=== PATIENT | female | born 1945 | race Hispanic/Latino ===

== ENCOUNTER → 2019-06-16 | Day surgery (SDC) | payer MEDICARE ==
[2019-06-14 11:38] LABS: BASOPHILS % 0.3 % (0.0-1.0); EOSINOPHILS # (AUTO) 0.2 (0.0-0.4); EOSINOPHILS % 1.7 % (0.0-6.0); HEMATOCRIT 36.8 % (34.2-44.1); LYMPHOCYTES # (AUTO) 1.9 (1.0-3.2); LYMPHOCYTES % 22.1 % (18.0-39.1); MEAN CORPUSCULAR HEMOGLOBIN 33.1 pg (28-32); MEAN CORPUSCULAR HGB CONC 32.6 g/dL (31-35); MEAN CORPUSCULAR VOLUME 101.7 fL (81-99); MONOCYTES # (AUTO) 0.8 (0.2-0.8); MONOCYTES % 8.7 % (4.4-11.3); NEUTROPHILS # (AUTO) 5.8 (2.1-6.9); NEUTROPHILS % 66.9 % (38.7-80.0); PLATELET COUNT 224 x10e3/uL (140-360); RED BLOOD COUNT 3.62 x10e6/uL (3.6-5.1); RED CELL DISTRIBUTION WIDTH 13.6 % (11.7-14.4)
[2019-06-14 12:09] LABS: ALBUMIN 3.7 g/dL (3.5-5.0); ALBUMIN/GLOBULIN RATIO 0.8 (0.8-2.0); ANION GAP 17.7 mmol/L (8-16); CALCIUM 9.7 mg/dL (8.4-10.2); CREATININE, SERUM 3.49 mg/dL (0.57-1.11); POTASSIUM 3.7 mmol/L (3.5-5.1)
[2019-06-16] VITALS (13 sets, daily range): BP systolic 60–109; BP diastolic 36–80
[~2019-06-16] VITALS: Ht 160 cm; Wt 64.4 kg
[~2019-06-16] MED LIST: ASPIR-LOW81 MG; CALCIUM ACETAT667 M1; ELIQUIS5 MG; FENTANYL CITRATE/PF 100MCG/2 ML INJ ONE; HEPARIN SOD (PORCINE) 1000 UNIT/ML 30ML ONE; HEPARIN SOD/SOD CHLORIDE 2,000 ML ONE; IOPAMIDOL 370 MG/ML 200 ML INFUS..BTL INJ ONE; LIDOCAINE HCL 2% LOCAL 20 ML VIAL ONE; LISINOPRIL2.5 MG PO; MECLIZINE HCL25 MG; METOPROLOL TART50 MG PO; MIDAZOLAM HCL 2 MG/2 ML VIAL ONE; NITROGLYCERIN/D5W 200 MCG/ML 250 ML ONE; RENA-VITE TABL0.8 MG; SENSIPAR30 MG PO; SODIUM CHLORIDE 0.9% 1000ML 1,000 ML ONE; VERAPAMIL HCL 2.5 MG/ML 2 ML VIAL ONE
--- NOTE | 2019-06-16 12:00 | NUR ---
1200t in #9, received from procedure.[facility] rt TR-band Dr Devang Levin fix Received report form [place] GOMEZ.TR band air down at 12n. Alert oriented and appropriate, PERRLA, respirations even and unlabored to room air. Pulses x4 extremities equal and faint. Pedal pulses PT/DP dopplerx4. Skin warm and dry integrity appears intact in general. IV 20g rt ac,started and presents healthy w/o s/s of infiltration or complaint. NS 0.9% Bolus 250 and md to update b/p post .Abdomen soft and supple. pt offered toileting, denies need to urinate or defecate. Personal affects with patient. Family at bedside. Pt and family verbalizes understanding of POC. ds/rn
--- NOTE | 2019-06-16 12:45 | NUR ---
1245bp resulting 102/72 s/p 250NS and chicken broth and crackes tolerated well .Left fistula positive thrill to f/o Friday for HD tx .Pt meets DC criteria. Rt TR band site assessed for s/s of complication and presecence of hematoma. XXXXX warm, dry, no discolor, and pulses present. IV removed from rt ac. Distal tip appears intact. VS WNL. Pt denies pain, sob, or need at this time. Family at bedside. Review of discharge paperwork and follow up instructions. verbalized understanding. Pt to wheelchair and transported to front of hospital. Transferred to private vehicle under own strength w/o incident with DC paperwork in hand. - natanael/deondre
--- NOTE | 2019-06-16 18:00 | NUR ---
1800 Pt meets DC criteria. Rt groin assessed for s/s of complication and presence of hematoma. Skin warm, dry, no discolor, and pulses present. IV removed from . Distal tip appears intact. VS WNL. Pt denies pain, sob, or need at this time. Family at bedside. Review of discharge paperwork and follow up instructions. verbalized understanding. Pt to wheelchair and transported to front of hospital. Transferred to private vehicle under own strength w/o incident with DC paperwork in hand. - natanael/deondre Addendum: 06/16/19 at 1831 by María Finley RN 1800 disregard documentation error in chart wrong pt
--- NOTE | 2019-06-17 21:05 | Operative Report ---
DATE OF PROCEDURE: 06/16/2019 SURGEON: Dylon Savage MD Cardiac Catheterization PROCEDURE INDICATION: Symptoms concerning for angina pectoris and abnormal stress test. PROCEDURES PERFORMED: 1. Left heart catheterization. 2. Selective coronary angiography. 3. A 6-Maldivian Angio-Seal closure at the right femoral site. PROCEDURE COMPLICATIONS: None. ESTIMATED BLOOD LOSS: Less than 50 mL. DESCRIPTION OF PROCEDURE: After consent was obtained, the patient was prepped and draped in a sterile fashion. The right femoral site was locally infiltrated with 2% lidocaine and access was obtained with micropuncture. A 6-Maldivian sheath was placed. All catheters were railed to the proximal ascending aorta over leading J-wire. A JL4 6-Maldivian catheter was used for engagement of left main. A JR4 catheter 6-Maldivian was used to engage the right coronary artery, and the aortic valve was crossed for hemodynamic measurements. No left ventriculogram was performed. FINDINGS: The following findings were noted; 1. LV pressure is 106/2 with end-diastolic pressure of 14. 2. Aortic pressure is 103/52. 3. No left ventriculogram was performed. 4. Left main has 20% proximal stenosis. There were moderate calcifications of the LAD. The LAD proximally has less than 30% stenosis. It gives the first diagonal with acute angulation, two 90-degree bands in the proximal segment. The mid LAD has 30% stenosis. There is a second diagonal of small caliber. The apical LAD has a focal 50% stenosis. 5. The circumflex has 40% proximal stenosis prior to giving an obtuse marginal of medium caliber. The obtuse marginal has 30% stenosis. The terminal circumflex is small in caliber. Moderate calcifications are noted throughout the circumflex. 6. The right coronary artery has moderate calcifications and is dominant. It gives 2 obtuse marginals. In the mid segment, there is an area of eccentric 60% stenosis. The terminal RPDA and RPLV arise from this vessel. CONCLUSION: 1. Moderate multivessel coronary artery disease. Recommend optimize medical therapy. Initiate atorvastatin 40 mg at bedtime and up titrate statin potency to high as tolerated. 2. Add isosorbide mononitrate 30 mg daily. 3. Continue medical optimization and depending on symptomatic response, consider staged RCA FFR guided PCI. MD JENNIFER Kam/CORINL /[id number]
== END | disposition home or self-care (01) ==
LOC: CATH LAB 06:41
PROVIDERS: ATTEND Internal Medicine Cardiovascular Disease
DX: R94.39 Abnormal result of other cardiovascular function study (principal); Z01.812 Encounter for preprocedural laboratory examination
CPT/HCPCS: 36415; 80053; 83036; 85025; 93458; C1769; C1887; J1644; J2001; J2250; J3010; J7030; Q9967